=== PATIENT | male | born 1965 | race Caucasian/White ===

== ENCOUNTER 2022-06-10 09:41 | Emergency (ER) | payer OTHER, SELFPAY ==
[2022-06-10 09:43] VITALS: BP 121/82; PULSE 81; RESP 18; TEMP 36.3; O2SAT 100; BMI 27.4
[2022-06-10] MEDS: Lidocaine 1% (20 ml mdv) 20 ML Vial INFILT (10:41)
[2022-06-10] MEDS: Cefazolin 1 GM/50 ML BAG IV (10:41)
[2022-06-10] MEDS: Diphth,Pertuss(Acell),Tet Vac 0.5 ML Vial IM (10:41)
--- NOTE | 2022-06-10 10:45 | RAD_ITS ---
STUDY: X-RAY - RIGHT HAND, ATTENTION FOURTH FINGER REASON FOR EXAM: Male, 57 years old. Laceration. TECHNIQUE: 3 view(s) of the finger were obtained. COMPARISON: None. FINDINGS: Normal metacarpal head. Normal metacarpophalangeal joint. Normal proximal phalanx. Normal middle phalanx. There is amputation of the distal portion of the distal phalanx of the fourth digit with overlying soft tissue laceration. Normal proximal interphalangeal joint. Normal distal interphalangeal joint. RAD/Finger(s) Min 2 Views IMPRESSION: Amputation of the distal portion of the distal phalanx of the fourth digit with overlying soft tissue laceration. No radiopaque foreign body is seen. Electronically Signed: Garo Lovelace MD at 11:15 EST ,
--- NOTE | 2022-06-10 11:24 | EDS_ITS ---
HPI History of Present Illness Chief Complaint: Laceration Detail of Chief Complaint: Laceration right ring finger Occured/Mechanism Comment: Distal portion of right ring finger. He was using a band saw. Tetanus is unknown. He had coffee 20 minutes prior to presentation. Onset/Context/Timing Onset: Hours Context: Sudden Onset Timing: Continuous Quality of Pain: Dull and Throbbing Location: Right ring finger Current Severity: Mild Maximum Severity: Moderate Worsened by: Movement Relieved by: Nothing Associated Symptoms Associated Symptoms: Negative for Parasthesia, Weakness or Loss of Funtion Narrative Narrative: Patient is 57-year-old [id number] male presents with injury to his right ring finger. This occurred at work using a band saw. 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 He has no other complaints. He is not diabetic. He has no antibiotic yolanda rgies. Tetanus Immunization: Unknown Prior similar symptoms: Yes Recent Illness/Hospitalization: No PFSH PFSH Medical History (Updated 06/10/22 @ 12:[address] Reji Cerda MD) Laceration Medical History no medical history no medical history Home Medications cephalexin 500 mg capsule 500 mg PO Q6 #16 CAPSULES 06/10/22 [Rx Last Taken Unknown] Allergy/AdvReac Type Severity Reaction Status Date / Time No Known Allergies Allergy Verified 06/10/22 09:44 Social History (Updated 06/10/22 @ 11:[address] Reji Cerda MD) household members: spouse Smoking Status: Never smoker substance use type: does not use ROS ROS ED Constitutional Constitutional ED: Denies chills, fever(s), subjective, sweats or weight loss Eyes Eyes: Denies blurry vision, change in vision or diplopia ENT ENT ED: Denies ear pain, rhinorrhea or sore throat Neurologic Neurologic: Denies paresthesias or weakness Hematologic/Lymphatic Hematologic/Lymphatic: Denies easy bleeding, easy bruising or lymphadenopathy EXAM Physical Exam Const Vital Signs: 06/10/22 09:43 Temperature 97.4 F L Temperature Source Temporal Pulse Rate 81 Respiratory Rate 18 Blood Pressure 121/82 H Blood Pressure Mean 95 Pulse Ox 100 Oxygen Delivery Method Room Air Positive well nourished, well developed and obese General Appearance ED: well developed and NAD; Negative for cyanotic or diaphoretic Nutritional Appearance: obese HEENT normocephalic and atraumatic Eyes PERRL and EOMs intact bilaterally Neck full ROM and supple Chest Wall inspection of chest normal and palpation of chest normal Resp normal respiratory effort and clear to auscultation bilaterally Cardio regular rate, regular rhythm, S1 normal heart sound, S2 normal heart sound and no murmurs Extremity Negative for normal to inspection or full ROM Extremity Narrative: Patient has partial amputation of his right ring finger on the radial side. He has no two-point discrimination or sensation on the radial side. He has altered sensation on the ulnar side. The nail is involved. He is able to flex and extend at the PIP and DIP joint. Tetanus is unknown. Neuro oriented x3, CN's II-XII intact bilaterally, moves all extremities, no focal motor deficits and No no sensory deficits noted Sensorium / Orientation: alert Psych mental status grossly normal Skin Skin Narrative: Laceration right ring finger Lesions: no lesions Rashes: no rashes MDM MDM MDM Narrative Medical decision making narrative: X-ray to determine extent of injury. Tetanus update, 1 g Ancef, digital block and repair with refer to Ortho. Case was discussed with Dr. Serjio Garcia on-call for Ortho. Like patient to call office for follow-up. Lab Data Lab results narrative: Three-view x-ray of the finger reveals partial amputation with loss of midportion of the distal phalanx. This was independently reviewed and interpreted by me. Radiography Diagnostic Testing: Clinical Impression(s) from Imaging Studies Finger X-Ray 06/10/22 10:45 IMPRESSION: Amputation of the distal portion of the distal phalanx of the fourth digit with overlying soft tissue laceration. No radiopaque foreign body is seen. Electronically Signed: Garo Lovelace MD at 11:15 EST , Procedures Other Procedures Procedure(s): Repair of partial amputation with nailbed injury. Digit was Nestabs 5 metacarpal nerve block. The wound was irrigated with 350 cc of normal saline. The remanence of the nail proximally and distally were removed. The nailbed was approximated with 5-0 Vicryl. A total of 4 simple sutures were placed. There is loss of tissue and the skin was closed using 5-0 Ethilon. A total of 4 stitches was placed. Bacitracin was applied to the nailbed with Vaseline impregnated gauze. Dressing was applied and patient was placed in a aluminum finger splint. Discharge Plan Triage Chief Complaint: Laceration ED Provider: Reji Cerda Dx/Rx/DC Orders Clinical Impression: Open fracture of phalanx of right little finger, Nailbed injury, Avulsion of soft tissue Instructions: ED Fracture, Finger, Open Prescriptions: New cephalexin [cephalexin] 500 mg capsule 500 mg PO Q6 Qty: 16 0RF Primary Care Provider: Care Physician,No Primary Referrals: José Miguel Garcia MD [Med Staff - Active Staff] - 2 Days for wound check Care Physician,No Primary [Primary Care Provider] - Activity Restrictions/Additional Instructions: 1. Keep dressing Amcill clean and dry. 2. Do not remove dressing for 2 days 3. Take antibiotic until gone Disposition Disposition: Home, Self Care
== END 2022-06-10 13:50 | disposition home or self-care (01) ==
PROVIDERS: Emergency Provider Emergency Medicine; Visit Provider Emergency Medicine
DX: S62.606B Fracture of unspecified phalanx of right little finger, initial encounter for open fracture (principal); S69.91XA Unspecified injury of right wrist, hand and finger(s), initial encounter; W31.2XXA Contact with powered woodworking and forming machines, initial encounter; Z23 Encounter for immunization; E66.9 Obesity, unspecified
CPT/HCPCS: 11730; 73140; 90715; 96365; 99284; J7050; A4216